=== PATIENT | male | born 1980 | race Caucasian/White ===

== ENCOUNTER 2025-06-07 07:54 | Emergency (ER) | payer OTHER, SELFPAY ==
--- OUTSIDE RECORDS SUMMARY | 2019-09-26 07:21 | XMS_ITS | Continuity of Care Document ---
Author Organization [facility]ly [facility] Address [address] [place] [address] Phone Care Team Providers Care Tire Shop Manager Name Role Phone NonClinical, Staff Unavailable Unavailable Allergies, Adverse Reactions, Alerts Substance Reaction Status Criticality No Known Allergies Active No Inform ation Medications Medication Instructions Dosage Effective Dates (start - stop) Status Comments aspirin 81 mg chewable tablet chew 1 tablet by oral route every day 81 MG - Active Procedures Procedure Date Offic/outpt E&m Estab Low-mod EKG 12 Lead; Tracing Only OFFICE/OUTPATIENT VISIT, [facility] Advance Directives Directive Yes / No Effective Date File Name No Information Encounters Encounter Description Practice Location Reason(s) For Visit Diagnoses Date Provider Providers Copied on Encounter [facility], [address] [place] [address], [id number], [place] tel:[phone] [facility] No Information 0 NonClinical Staff. . Offic/outpt E&m Estab Low-mod [facility], [address] [place] [address], [id number], [place] tel:[phone] [facility] STD testing (chief complaint) Swollen Gland (chief complaint) Screening for STDs (sexually transmitted diseases) 7 No Information OFFICE/OUTPA TIENT VISIT, [facility], [address] [place], [place], [id number], [place] tel:[phone] [facility] TE (chief complaint) Heart palpitationsEnco unter to establish careCoronary artery disease, angina presence unspecified, unspecified vessel or lesion type, unspecified whether ass[place] and sioux or transplanted heart Chase Hoff. [facility] [place], [place], [id number], . tel:[phone] Family History Family Member Type Diagnosis Age At Onset No Information Payers Payer name Insurance type Covered constitution party ID Authorkhoa oliver(s) [facility] [id number] Social History Type Description Quantity Date Captured Comments Alcohol Use Details Unknown Caffeine Use Details Unknown Tobacco Use Status Smoking Status No Information Sex Male Sexual Orientation Straight or heterosexual Gender Identity Male Chief Complaint And Reason For Visit No Information Reason For Referral Reason For Referral No Information Plan Of Treatment Date Type Action Status Goal Lipid Panel due Goal Lipid Panel due Referral Ordered: Cardiology Referral ordered Referral Ordered: EKG 12 Lead; Tracing Only Appointment date/timeframe: Today ordered History Of Present Illness Encounter Date Complaint History Of Prese nt Illness Swollen Gland Pt states that bismark oconnell was cleaning out a goat pen yesterday and came across mold. He notes he has been wheezing and had a swollen gland under his neck. He had a period of coughing the evening after he was exposed, but those sympotms have completely resolved. STD testing 35 year old male presents to as a SDWI for STD testing. Pt is here for routine testing. He is not having any symptoms, but he has been exposed to herpes. TE 35 y/o male pres ents today to establish care with new PCP: PrevPCP: None. PMHx: Nothing concerning. PSHx: None. Medications: None. ALLERGIES: NKA. Family Hx: Grandfather- Heart disease. Living situation: Currently living on a farm in [place]. 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 Diet isn't the best with patient explaining he eats whatever is available. Tobacco: Started smoking at 12 y/o, smoking 1/2 PPD. At the heaviest he smoked 1 PPD. Alcohol: None. Drugs: MJ use. Concerns Today: Patient has cardiac concerns per experiencing heart palpitations and tunnel vision. Onset at age 14. He states that over time symptoms (palpitations/chest pressure) have occurred more frequently as of late. He reports having episodes that occur for a week at a time and then other episodes only occurring for a day. Episodes range from lasting for a couple of minutes to 15 minutes. He describes episodes feeling as though he just got done running. He feels he can actually see the beating of his heart through his chest. He feels the pounding is out of propoprtion to the exertion. Symptoms will sometimes resolve when resting for a moment. He denies being born with any cardiac complications. He used to run long distance and denies any passing out, blacking out, syncope, pain with exertion. He admits to having a hx of anxiety and panic attacks but does not think this correlates with his symptoms. Functional Status Date Functional Assessmen t No Information Instructions Date Instruction Additional Infor mation No Information Assessments Type Assessment Date No Information Patient Care Teams Name Effective Dates (start - stop) Status Members No Information
--- OUTSIDE RECORDS SUMMARY | 2024-01-31 03:52 | XMS_ITS | Continuity of Care Document ---
Author Organization [facility] Address [address] [place] [address] Phone Care Team Providers Care Paper Mill Manager Name Role Phone Gabe Santiago MD Unavailable Unavailable Allergies, Adverse Reactions, Alerts Substance Reaction Status Criticality No Known Allergies Active No Inform ation Medications Medication Instructions Dosage Effective Dates (start - stop) Status Comments fluticasone propionate 50 mcg/actuation nasal spray,suspension 2 sprays each nostril in the morning - Active hydrocodone 7.5 mg-acetaminophen 325 mg tablet take 1 tablet by oral route every 6 hours as needed for pain as needed for Pain,Severe 7-10 On Pain Scale 1.00 tablet - Active lisinopril 5 mg tablet take 1 tablet by oral route every day 5 MG - Active Procedures Procedure Date OFFICE/OUTPATIENT VISIT, EST NASAL ENDOSCOPY, DX POSTOP FOLLOW-UP VISIT NASAL/SINUS ENDOSCOPY, SURG REVISION OF ETHMOID SINUS EXPLORATION MAXILLARY SINUS OFFICE/OUTPATIENT VISIT, NEW Advance Directives Directive Yes / No Effective Date File Name No Information Encounters Encounter Description Practice Location Reason(s) For Visit Diagnoses Date Provider Providers Copied on Encounter [facility] [place], [address], [place], [place], [id number], tel:[phone] [facility] No Information 4 Jack Bernal. [address], [address], [place], [place], [id number], [place]. tel:[phone] OFFICE/OUTPA TIENT VISIT, EST [facility] [place], [address], [place], [place], [id number], [place] tel:[phone] [facility] Follow Up of Nasal Drainage/C oncerns (chief complaint) Chronic sinusitisDevia kendrick nasal septum 4 Jack Bernal. [address] [facility], [address], [place], [place], [id number], [place]. tel:[phone] Referring Provider: Gabe Santiago, [address] [facility] [address], [place], [address]. tel:[phone] [facility] [place], [address] [facility], [place], [place], [id number], [place] tel:[phone] [facility] Nasal Drainage/C oncerns (chief complaint) Chronic sinusitis 4 Jack Bernal. [address] [facility], [address], [place], [place], [id number], [place]. tel:[phone] Referring Provider: Gabe Santiago, [address] [facility] [address], [facility] [place], [address]. tel:[phone] [facility] [place] [address] [facility], [place], [place], [id number], [place] tel:[phone] [facility] Follow Up of nose. (chief complaint) Encounter for surgical aftercare following surgery on the sense organs 4 Jack Bernal. [address] [facility], [address], [place], [place], [id number], [place]. tel:[phone] Referring Provider: Gabe Santiago, [address] [facility] [address], [place], [address]. tel:[phone] [facility] [place], [address] , [place], [place], [id number], [place] tel:[phone] [facility] PO bilateral ESS. (chief complaint) Encounter for surgical aftercare following surgery on the sense organs 4 Jack Bernal. [address] [facility], [address], [place], [place], [id number], [place]. tel:[phone] [facility] [place], [address] , [place], [place], [id number], [place] tel:[phone] [facility] No Information 4 Jack Bernal. [address] [facility], [address], [place], [place], [id number], [place]. tel:[phone] [facility] [place], [address] , [place], [place], [id number], [place] tel:[phone] [facility] No Information 4 Jack Bernal. [address] [facility], [address], [place], [place], [id number], [place]. tel:[phone] OFFICE/OUTPA TIENT VISIT, [facility] [place], [address] [place], [place], [id number], [place] tel:[phone] [facility] Nasal Drainage/C oncerns (chief complaint) Chronic sinusitisDevia kendrick nasal septum 4 Jack Bernal. [address] [facility], [address], [place], [place], [id number], [place]. tel:[phone] Family History Family Member Type Diagnosis Age At Onset Father Problem (finding) Cancer Father Problem (finding) Cardiac disorder Payers Payer name Insurance type Covered constitution party ID Pawel oliver(s) [facility] [id number] Social History Type Description Quantity Date Captured Comments Sex Male Smoking Status No Information Chief Complaint And Reason For Visit No Information Reason For Referral Reason For Referral No Information Plan Of Treatment Date Type Action Status Future Order: Lab Order Aerobic Bacterial Culture (41836) ([id number]), Collected on: Ordered History Of Present Illness Encounter Date Complaint History Of Prese nt Illness Follow Up of Nasal Drainage/Conc erns Nasal Drainage/Concerns Follow Up of nose. PO bilateral ESS. Nasal Drainage/Concerns Functional Status Date Functional Assessmen t No Information Instructions Date Instruction Additional Infor ramón 1. Culture left abdoul lemos sinus.2. He will continue his amoxicillin until we get the culture results. Related to Chronic sinusitis 1. Amoxicillin 875 1 po BID x 14 days2. RTC 2 weeks Related to Chronic sinusitis 1. Continue nasal ir rigations.2. Return to clinic as needed. Related to Encounter for surgical aftercare following surgery on the sense organs 1. Nose debrided toabby ay2. Fluticasone 2 sprays each nostril once a day3. Continue nasal saline irrigations4. Return to clinic 4 weeks Related to Encounter for surgical aftercare following surgery on the sense organs 1. CT scan reviewed with patient. At this point in time I do recommend endoscopic sinus surgery: Bilateral maxillary antrostomies bilateral total ethmoidectomies.2. R&B discussed: Bleeding, persistent infection, CSF leak, Injury to eye or brain, change or loss of vision. Related to Chronic sinusitis Assessments Type Assessment Date No Information Patient Care Teams Name Effective Dates (start - stop) Status Members No Information
--- OUTSIDE RECORDS SUMMARY | 2024-10-29 08:10 | XMS_ITS ---
Author Organization [facility] Address [address] [place] [address] Phone [phone] Care Team Providers Care Recruiter Account Manager Name Role Phone Herb Jimenez Primary Care Provider [phone] Maynor Ma [phone] REASON FOR VISIT Counseling Social History Sex Observation Social History Observation Description Sex Observation Male Sexual Orientation Social History Observation Description Sexual Orientation Choose not to disclo se Gender Identity Social History Observation Description Gender Identity Choose not to disclose Encounters Date Time Type Facility Location Provider Diagnosis 10/29/2024 08:10 AM Office Visit [facility] [address] [place] [address] Maynor Ma Plan Of Treatment Next Appt Details Provider Name:Herb Jimenez, 0 06/23/2025 09:10:00 AM, [address] [place] [address], [address], Medical (General) History Medical History History ICD Code HTN potential NSTEMI ( Reported by pt in 2022. Denies being told if any cardiac stents were placed.) Anxiety/depression (reported by pt) Surgical History Surgery Date(Month/Year) L. sinus surgery. 2023 Removal of all of top teeth. 2021 Hospitalization History Reason Date(Month/Year) ED visit - due to R. knee sw elling/pain. dx with pre-paterllar bursitist. Pt was treated with abx and advised to f/u with PCP. 03/23/2025 potential NSTEMI. Pt reporte d going to hosp due to chest pain. Found to have elevated troponin and had Cath. No stent placement or coronary occlusions were reported 2022 Progress Notes * Juvencio ALCALA MDOB: [birth year] (44 yo M)Acc No.[id number]:10/29/2024 UNLOCKED PROGRESS NOTE Patient: Gopal Juvencio SHARMA Provider: Arnulfo Ma :1980 A ge:43 Y S ex:Male Date:10/29/2024 Address:[address] [place], [place] [id number] Pcp:Herb Jimenez Subjective: * Chief Complaints: * 1 . Counseling. * Screening: * * Medical History: Objective: * Vitals: Assessment: Plan: * Treatment: * Care Plan Details* * Electronic signature of Maynor Ma on 06/07/2025 at 08:22 AM SECURITIES SETTLEMENT PROCESSOR Sign off status: Pending * Provider: Arnulfo Ma Date: 0 10/29/2024 Generated for Lola stone/Jey/Bharatiitting on: 1 08/08/2024 08:22 AM SECURITIES SETTLEMENT PROCESSOR
--- OUTSIDE RECORDS SUMMARY | 2024-11-17 09:10 | XMS_ITS ---
Author Organization [facility] Address [address] [place] [address] Phone [phone] Care Team Providers Care Woods Rider Name Role Phone Tony Herb Primary Care Provider REASON FOR VISIT 4 week F/U Social History Sex Observation Social History Observation Description Sex Observation Male Sexual Orientation Social History Observation Description Sexual Orientation Choose not to disclo se Gender Identity Social History Observation Description Gender Identity Choose not to disclose Encounters Date Time Type Facility Location Provider Diagnosis 11/17/2024 09:10 AM Office Visit [facility] [address] [place] [address] Herb Jimenez Plan Of Treatment Next Appt Details Provider Name:Herb Jimenez, 0 06/23/2025 09:10:00 AM, [address] [place], [address], Medical (General) History Medical History History ICD [...] Juvencio ALCALA MDOB: [birth year] (44 yo M)Acc No.[id number]:11/17/2024 UNLOCKED PROGRESS NOTE Progress Note Patient: Juvencio LAGUERRE Appointment Provider: Tika Jimenez MD :1980 A ge:43 Y S ex:Male Date:11/17/2024 Address:[address] [place], [place] [address] Subjective: * Chief Complaints: * 1 . 4 week F/U. * Screening: * * Medical History: Objective: * Vitals: Assessment: Plan: * Treatment: * * Electronic signature of Toni Jimenez , [id number] on 06/07/2025 at 08:22 AM DINING ROOM TABLES SET UP ATTENDANT Sign off status: Pending * Appointment Provider: Tika Jimenez MD Date: 0 11/17/2024 Generated for Lola stone/Jey/Bharatiitting on: 1 08/08/2024 08:22 AM DINING ROOM TABLES SET UP ATTENDANT
--- OUTSIDE RECORDS SUMMARY | 2025-01-07 13:50 | XMS_ITS ---
Author Organization [facility] Address [address] [place] [address] Phone [phone] Care Team Providers Care Nursery Manager Name Role Phone Herb Jimenez Primary Care Provider [phone] Ellie Bowens DMD REASON FOR VISIT new patient Social History Sex Observation Social History Observation Description Sex Observation Male Sexual Orientation Social History Observation Description Sexual Orientation Choose not to disclo se Gender Identity Social History Observation Description Gender Identity Choose not to disclose Encounters Date Time Type Facility Location Provider Diagnosis 01/07/2025 01:50 PM Office Visit [facility] [address] [place] [address] Ellie Bowens Plan Of Treatment Next Appt Details Provider Name:Herb Jimenez, 0 06/23/2025 09:10:00 AM, [address] [place], [address], Medical (General) History Medical History History ICD [...] Juvencio ALCALA MDOB: [birth year] (44 yo M)Acc No.[id number]:01/07/2025 UNLOCKED PROGRESS NOTE Patient: Gopal CANDICEPhoebe Juvencio Arredondo Provider: Donal Bowens DMD :1980 A ge:44 Y S ex:Male Date:01/07/2025 Address:[address] [place], [place] [id number] Pcp:Herb Jimenez Subjective: * Chief Complaints: * 1 . New patient. * Screening: * * Medical History: Objective: * Vitals: Assessment: Plan: * Treatment: * * Electronic signature of Ellie Bowens DMD, [id number] on 06/07/2025 at 08:22 AM CONCRETE BOOM PUMP OPERATOR Sign off status: Pending * Provider: Donal Bowens DMD Date: 0 01/07/2025 Generated for Lola stone/Jey/Bharatiitting on: 1 08/08/2024 08:22 AM CONCRETE BOOM PUMP OPERATOR
--- OUTSIDE RECORDS SUMMARY | 2025-03-12 08:10 | XMS_ITS ---
Author Organization [facility] Address [address] [place] [address] Phone [phone] Care Team Providers Care Drawing Frame Tender Name Role Phone Herb Jimenez Primary Care Provider Ellie Bowens DMD REASON FOR VISIT #30, #31-OB Social History Sex Observation Social History Observation Description Sex Observation Male Sexual Orientation Social History Observation Description Sexual Orientation Choose not to disclo se Gender Identity Social History Observation Description Gender Identity Choose not to disclose Encounters Date Time Type Facility Location Provider Diagnosis 03/12/2025 08:10 AM Office Visit [facility] [address] [place] [address] Ellie Bowens Plan Of Treatment Next Appt Details Provider Name:Herb Jimenez, 0 06/23/2025 09:10:00 AM, [address] [place], [address], Medical (General) History Medical History History ICD [...] Juvencio ALCALA MDOB: [birth year] (44 yo M)Acc No.[id number]:03/12/2025 UNLOCKED PROGRESS NOTE Filling Patient: Gopal CANDICEToni SandhuJuvencio Arnulfo Provider: Donal Bowens DMD :1980 A ge:44 Y S ex:Male Date:03/12/2025 Address:[address] [place], [place] [id number] Pcp:Herb Jimenez Subjective: * Chief Complaints: * 1 . #30, #31-OB. * Screening: * * Medical History: Objective: * Vitals: Assessment: Plan: * Treatment: * * Electronic signature of Ellie Bowens DMD, [id number] on 06/07/2025 at 08:21 AM BEND UP Sign off status: Pending * Provider: Donal Bowens DMD Date: Generated for Lola stone/Jey/Darcy on: 08/08/2024 08:21 AM BEND UP
--- OUTSIDE RECORDS SUMMARY | 2025-04-21 08:10 | XMS_ITS ---
Author Organization [facility] Address [address] [place] [address] Phone [phone] Care Team Providers Care Legal Project Manager Name Role Phone TonyHerb Primary Care Provider [phone] REASON FOR VISIT med check refill Social History Sex Observation Social History Observation Description Sex Observation Male Sexual Orientation Social History Observation Description Sexual Orientation Choose not to disclo se Gender Identity Social History Observation Description Gender Identity Choose not to disclose Encounters Date Time Type Facility Location Provider Diagnosis 04/21/2025 08:10 AM Office Visit [facility] [address] [place] [address] Herb Tony Plan Of Treatment Next Appt Details Provider Name:Herb Jimenez, 0 06/23/2025 09:10:00 AM, [address] [place], [address], Medical (General) History Medical History History ICD [...] Juvencio ALCALA MDOB: [birth year] (44 yo M)Acc No.[id number]:04/21/2025 UNLOCKED PROGRESS NOTE Progress Note Patient: Juvencio LAGUERRE Appointment Provider: Tika Jimenez MD :1980 A ge:44 Y S ex:Male Date:04/21/2025 Address:[address] [place], [place] [id number] Subjective: * Chief Complaints: * 1 . Med check refill. * Screening: * * Medical History: Objective: * Vitals: Assessment: Plan: * Treatment: * * Electronic signature of Toni Jimenez , [id number] on 06/07/2025 at 08:21 AM DIRECTOR OF SPEECH PATHOLOGY Sign off status: Pending * Appointment Provider: Tika Jimenez MD Date: 06/21/2024 Generated for Lola stone/Jey/Bharatiitting on: 08/08/2024 08:21 AM DIRECTOR OF SPEECH PATHOLOGY
--- OUTSIDE RECORDS SUMMARY | 2025-05-05 13:10 | XMS_ITS ---
Author Organization [facility] Address [address] [place] [address] Phone [phone] Care Team Providers Care Front Office Representative Name Role Phone Herb Jimenez Primary Care Provider Ellie Bowens DMD [phone] REASON FOR VISIT #30, #31-O & B Social History Sex Observation Social History Observation Description Sex Observation Male Sexual Orientation Social History Observation Description Sexual Orientation Choose not to disclo se Gender Identity Social History Observation Description Gender Identity Choose not to disclose Encounters Date Time Type Facility Location Provider Diagnosis 05/05/2025 01:10 PM Office Visit [facility] [address] [place] [address] Ellie Bowens Plan Of Treatment Next Appt Details Provider Name:Herb Jimenez, 0 06/23/2025 09:10:00 AM, [address] [place], [address], Medical (General) History Medical History History ICD [...] Juvencio ALCALA MDOB: [birth year] (44 yo M)Acc No.[id number]:05/05/2025 UNLOCKED PROGRESS NOTE Filling Patient: Juvencio LAGUERRE Provider: Donal Bowens DMD :1980 A ge:44 Y S ex:Male Date:05/05/2025 Address:[address] [place], [place] [id number] Pcp:Herb Jimenez Subjective: * Chief Complaints: * 1 . #30, #31-O & B. * Screening: * * Medical History: Objective: * Vitals: Assessment: Plan: * Treatment: * * Electronic signature of Ellie Bowens DMD, [id number] on 06/07/2025 at 08:22 AM INTELLIGENCE OPERATIONS SPECIALIST Sign off status: Pending * Provider: Donal Bowens DMD Date: 07/05/2024 Generated for Lola stone/Jey/Darcy on: 08/08/2024 08:22 AM INTELLIGENCE OPERATIONS SPECIALIST
[2025-06-07 07:54] VITALS: BP 112/82; PULSE 65; RESP 16; TEMP 37; O2SAT 100
--- NOTE | 2025-06-07 08:00 | ED_ITS ---
HPI - URI/Sore Throat General Chief Complaint: Upper Respiratory Infection Stated Complaint: sinus infection Time Seen by Provider: 06/07/25 08:00 Source: patient Mode of arrival: ambulatory Limitations: no limitations History of Present Illness HPI Narrative: Patient is a 44-year-old male with known recurrent sinusitis here with same symptoms as normal about every 3 months. He has plans for upcoming surgery to his nasal passages to open up his sinuses. This is exactly same symptoms that he gets every 3 months. He does not feel sick of illness such as flu or COVID at this time. MD elicited complaint: rhinorrhea, nasal congestion and sinus pain (Typically has pain and pressure of all 4 quadrants; prior CT scan shows them to be full regularly) Pertinent past history: sinusitis Onset (ago): week(s) (1) Consistency: constant Severity: moderate Pain scale (0-10): 4 Description of mucous: clear and yellow Able to tolerate fluids by mouth: Yes Exacerbating factors: nothing Relieving factors: nothing Context: other (Patient has recurrent sinusitis and feels as if he is acute sinusitis at this time compared to prior same episodes in the past about every 3 months) Associated symptoms: headache, rhinorrhea and nasal congestion Treatments prior to arrival: none Related Data Allergies Allergy/AdvReac Type Severity Reaction Status Date / Time No Known Allergies Allergy Verified 06/07/25 08:01 Review of Systems Review of Systems: All systems reviewed & are unremarkable except as noted in HPI and below Constitutional: Constitutional: Reports no additional constitutional complaints Eyes: Eyes: Reports no additional eye complaints ENT: Reports system reviewed and no additional complaints, except as documented Cardiovascular: Cardiovascular: Reports no additional cardiovascular complaints Respiratory: Respiratory: Reports no additional respiratory complaints Gastrointestinal: Gastrointestinal: Reports no additional gastrointestinal complaints Genitourinary: Genitourinary: Reports no additional male genitourinary complaints Musculoskeletal: Musculoskeletal: Reports no additional musculoskeletal complaints Integumentary/Breasts: Skin/Breast: Reports system reviewed and no additional complaints, except as docu Neurologic: Reports system reviewed and no additional complaints, except as documented Psychiatric: Psychiatric: Reports no additional psychiatric complaints Endocrine: Endocrine: Reports no additional endocrine complaints Hematologic/Lymphatic: Hematologic/Lymphatic: Reports no additional hematologic/lymphatic complaints Allergic/Immunologic: Allergic/Immunologic: Reports no additional allergic/immunologic complaints Exam Const: General: healthy appearing Nutritional Appearance: well nourished Orientation/consciousness: patient oriented x3 Limitations: no limitations HENMT: Head: normal to inspection Ears: external ears normal Face/Nose/Sinus: Normal external nose present Face and sinus: sinus tendernes s (Bilaterally) frontal and maxillary Mouth: Yes Normal oral and palatal mucosa present Teeth and gingiva: dentition normal (Upper teeth have been removed) Throat: posterior oropharynx normal Eyes: Conjunctivae: conjunctivae normal Pupils: Equal, round and reactive pupils present EOM: EOMs intact bilaterally Neck: Neck: normal visual inspection Chest: Chest palpation & inspection: normal inspection of the chest Resp: Effort & Inspection: normal respiratory effort and not labored Auscultation: clear to auscultation bilaterally and no crackles Cardio: Rate: regular rate Rhythm: regular rhythm Heart sounds: no murmurs GI: Inspection: non-distended GI Palp: Yes Soft to palpation and No Tenderness to palpation present (GI) Auscultation: normal bowel sounds : General: Yes bladder normal to palpation Back/Spine/Pelvis: Back: no CVA tenderness Skin: General skin exam: normal color Rashes: no rashes Wounds: no wounds Neuro: General: patient oriented x3, moves all extremities and no meningeal signs Extrem: General: normal to inspection, no clubbing, cyanosis or edema and no pedal edema Psych: Mental Status: mental status grossly normal Affect: normal affect Attitude: cooperative Course Vital Signs Vital signs: Vital Signs Temperature 37.0 C 06/07/25 07:54 Pulse Rate 65 06/07/25 07:54 Respiratory Rate 16 06/07/25 07:54 Blood Pressure 112/82 06/07/25 07:54 Pulse Oximetry 100 06/07/25 07:54 Oxygen Delivery Room Air 06/07/25 07:54 Temperature 37.0 C 06/07/25 07:54 Pulse Rate 65 06/07/25 07:54 Respiratory Rate 16 06/07/25 07:54 Blood Pressure 112/82 06/07/25 07:54 Pulse Oximetry 100 06/07/25 07:54 Oxygen Delivery Room Air 06/07/25 07:54 [facility] Narrative Medical decision making narrative: Patient is a 44-year-old male with known acute on chronic sinusitis every 3 months. Patient is here for the same. Omnicef. Patient did not want steroids. ENT as planned. Differential Diagnosis Differential Diagnosis: Sinusitis, pharyngitis Discharge Plan Discharge Clinical Impression: Acute bacterial sinusitis Patient Disposition: Home Condition: Stable Instructions: Antibiotic Form, Rhinosinusitis (ED) Patient Language: Malay Prescriptions: New cefdinir 300 mg capsule 300 mg PO BID 14 Days Qty: 28 0RF Follow-up/Referrals: Robin Valenzuela MD [Primary Care Provider, Internal Medicine] Stand Alone Forms: Work/School Release IP Time of Disposition: 08:07
--- OUTSIDE RECORDS SUMMARY | 2025-06-07 08:22 | XMS_ITS | Clinical Summary ---
Author Organization [facility] Address [address] [place] [address] Phone Care Team Providers Care Residential Monitor Name Role Phone Rogelio Kowalski DO Primary Care Provider [phone] Allergies No known active allergies Medications lisinopril (PRINIVIL, ZESTRIL) 5 MG Tablet Take 5 mg by mouth daily. Active Active Problems No known active problems Encounters Date Type Department Care Team Description 05/01/2025 Telephone [facility] - Ear, Nose & Throat - Normal [address] [place] [phone] Kendell Tomlni MD 04/29/2025 8:20 AM MOLD OPERATOR Office Visit [facility] - Ear, Nose & Throat - Normal [address] [place] [phone] Kendell Tomlin MD Chronic pansinusitis (Primary Dx); Nasal septal deviation; Fistula, teodoro-antral Discharge Disposition: Discharged to home or Selfcare 04/29/2025 Travel 04/01/2025 9:00 AM CDT Office Visit [facility] - Ear, Nose & Throat - Normal [address] [place] [phone] Kendell Tomlin MD Oral fistula (Primary Dx); Chronic pansinusitis Discharge Disposition: Discharged to home or Selfcare 04/01/2025 Travel 03/23/2025 11:04 PM CDT - 03/24/2025 1:17 AM CDT [facility] [address] [place] [address] Johan De La Garza MD Prepatellar bursitis of right knee Discharge Disposition: Discharged to home or Selfcare 03/23/2025 Travel 03/12/2025 Telephone [facility] [address] [place] [phone] Kendell Tomlin MD Appointment from Last 3 Months Family History Medical History Relation Name Comments No Known Problems Father No Known Problems Mother Relation Name Status Comments Father Mother Social History Tobacco Use Types Packs/Day Years Used Date Smoking Tobacco: Every Day Cigarettes Smokeless Tobacco: Never Tobacco Cessation:Ready to Q uit: No; Counseling Given: Yes Comments:VAPE Alcohol Use Standard Drinks/Week Comments Not Currently 0 (1 standard drink = 0.6 oz pur e alcohol) Sex and Gender Information Value Date Recorded Sex Assigned at Not on file Legal Sex Male 9:08 AM CDT Gender Identity Not on file Sexual Orientation Not on file Last Filed Vital Signs Vital Sign Reading Time Taken Comments Blood Pressure 116/77 04/29/2025 8:15 AM MOLD OPERATOR Pulse 61 04/29/2025 8:15 AM MOLD OPERATOR Temperature 36.3 C (97.4 F) 04/29/2025 8:15 AM MOLD OPERATOR Respiratory Rate 18 03/24/2025 1:09 AM CDT Oxygen Saturation 98% 04/29/2025 8:15 AM MOLD OPERATOR Inhaled Oxygen Concentration - - Weight 68 kg (150 lb) 04/29/2025 8:15 AM MOLD OPERATOR Height 188 cm (6' 2) 04/29/2025 8:15 AM MOLD OPERATOR Body Mass Index 19.26 04/29/2025 8:15 AM MOLD OPERATOR Plan of Treatment Health Maintenance Due Date Last Done Comments Hepatitis C Virus (HCV) Screening 1980 TdaP Immunization 1980 Hepatitis B Immunization (1 of 3 - 19+ 3-dose series) 12/08/1998 Pneumococcal Immunization Co mbined (1 of 2 - PCV) 12/08/1998 Cologuard 12/08/2024 Colonoscopy 12/08/2024 Colorectal Cancer Screening 12/08/2024 Immunochemical Fecal Occult Blood 12/08/2024 Influenza Immunization (#1) 2025 SARS-COV-2 Immunization ( - season) 2025 Respiratory Syncytial Virus (RSV) Immunization (Adult) (1 - 1-dose 75+ series) 12/08/2054 Human Papillomavirus (HPV) Immunization (No Doses Required) Completed Meningococcal Immunization (ACWY) Aged Out No longer eligible based on patient's age to complete this topic Rotavirus Immunization Aged Out No lo nger eligible based on patient's age to complete this topic Procedures Procedure Name Priority Date/Time Associated Diagnosis Comments CULTURE, AEROBIC ONLY Routine 04/01/2025 9:31 AM CDT Chronic pansinusitis XR KNEE MINIMUM 4 VIEWS RIGHT STAT 03/23/2025 11:59 PM CDT CBC WITH AUTO DIFFERENTIAL STAT 03/23/2025 11:42 PM CDT APTT (PTT) STAT 03/23/2025 11:42 PM CDT PROTIME (PT) (PROTHROMBIN TIME) STAT 03/23/2025 11:42 PM CDT C-REACTIVE PROTEIN (CRP) QUANT STAT 03/23/2025 11:42 PM CDT ERYTHROCYTE SEDIMENTATION RATE (ESR) STAT 03/23/2025 11:42 PM CDT BASIC METABOLIC PANEL W/ CALCIUM TOTAL STAT 03/23/2025 11:42 PM CDT COMPLETE BLOOD COUNT (CBC) WITH DIFF STAT 03/23/2025 11:42 PM CDT INCISION AND DRAINAGE STAT 03/23/2025 11:41 PM CDT from Last 3 Months Results * CULTURE, AEROBIC ONLY (04/01/2025 9:31 AM CDT) CULTURE RESULTS BETA-HEMOLYTIC STREPTOCOCCUS 04/03/2025 8:20 AM CDT [facility] CULTURE RESULTS Heavy Mixed travis 04/03/2025 8:20 AM CDT [facility] Comment:PROBABLE USUAL TRAVIS FOR THIS SPECIMEN SOURCE Culture SINUS / Unknown Non-Phlebotomy Collection / Unknown 04/01/2025 9:31 AM CDT 04/01/2025 9:31 AM CDT Narrative [facility] - 04/03/2025 8:20 AM CDT Sensitivity testing not routinely performed on beta Strep isolates. Kendell Tomlin MD MICROBIOLOGY - GENERAL ORDERAB LES Final Result [facility] [address] [place] [address], * XR KNEE MINIMUM 4 VIEWS RIGHT (03/23/2025 11:59 PM CDT) Anatomical Region Laterality Modality LOWER EXTREMITY, knee Right Digital Ra diography 03/23/2025 11:5 9 PM CDT Impressions 03/24/2025 9:56 AM CDT FINDINGS/IMPRESSION: No acute fractures or dislocations. No bony destruction or periostitis. Maintained joint spaces. Small joint effusion. Severe soft tissue swelling in the prepatellar region as could be seen in such settings as bursitis, contusion or infection.. Narrative 03/24/2025 9:56 AM CDT XR KNEE MINIMUM 4 VIEWS RIGHT : 03/23/2025 11:59 PM DICTATING PHYSICIAN: Neel Acuña MD, [facility]. HISTORY: As below. Technologist history: swelling, pain COMPARISON: None. Procedure Note Neel Caldwell MD - 03/24/2025 XR KNEE MINIMUM 4 VIEWS RIGHT : 03/23/2025 11:59 PM DICTATING PHYSICIAN: Neel Acuña [facility], [facility] HISTORY: As below. Technologist history: swelling, pain COMPARISON: None. FINDINGS/IMPRESSION: No acute fractures or dislocations. No bony destruction or periostitis. Maintained joint spaces. Small joint effusion. Severe soft tissue swelling in the prepatellar region as could be seen insuch settings as bursitis, contusion or infection.. Johan De La Garza MD IMG DIAGNOSTIC ORDERABLES Regina l Result * (ABNORMAL) CBC with Auto Differential (03/23/2025 11:42 PM CDT) WBC 14.27(H) 4.00 - 12.00 10(3)/mcL 03/23/2025 11:56 PM CDT [facility] RBC 4.27(L) 4.40 - 5.80 10(6)/mcL 03/23/2025 11:56 PM CDT [facility] HEMOGLOBIN (HGB) 13.6 13.0 - 16.5 g/dL 03/23/2025 11:56 PM CDT [facility] HEMATOCRIT (HCT) 39.6 38.0 - 50.0 % 03/23/2025 11:56 PM CDT [facility] MCV 92.7 82.0 - 96.0 fL 03/23/2025 11:56 PM CDT [facility] MCH 31.9 26.0 - 32.0 pg 03/23/2025 11:56 PM CDT [facility] MCHC 34.3 31.0 - 36.0 g/dL 03/23/2025 11:56 PM CDT [facility] PLATELET COUNT 352 140 - 440 10(3)/[facility] 03/23/2025 11:56 PM CDT [facility] RDW 13.1 11.8 - 15.5 % 03/23/2025 11:56 PM CDT [facility] MPV 8.6 8.0 - 12.6 fL 03/23/2025 11:56 PM CDT [facility] NEUTROPHILS 59.5 40.0 - 68.0 % 03/23/2025 11:56 PM CDT [facility] LYMPHOCYTES 27.5 19.0 - 49.0 % 03/23/2025 11:56 PM CDT [facility] MONOCYTES 7.5 3.0 - 13.0 % 03/23/2025 11:56 PM CDT [facility] EOSINOPHILS 4.3 0.0 - 8.0 % 03/23/2025 11:56 PM CDT [facility] BASOPHILS 0.8 0.0 - 1.0 % 03/23/2025 11:56 PM CDT [facility] IMMATURE GRANULOCYTE 0.4 0.0 - 0.4 % 03/23/2025 11:56 PM CDT [facility] ABSOLUTE NEUTROPHILS 8.48(H) 1.40 - 5.30 10(3)/mcL 03/23/2025 11:56 PM CDT [facility] ABSOLUTE LYMPHOCYTES 3.92(H) 0.90 - 3.30 10(3)/mcL 03/23/2025 11:56 PM CDT [facility] ABSOLUTE MONOCYTES 1.07(H) 0.10 - 0.90 10(3)/mcL 03/23/2025 11:56 PM CDT [facility] ABSOLUTE EOSINOPHIL 0.62(H) 0.00 - 0.50 10(3)/mcL 03/23/2025 11:56 PM CDT [facility] ABSOLUTE BASOPHILS 0.12(H) 0.00 - 0.10 10(3)/mcL 03/23/2025 11:56 PM CDT [facility] ABSOLUTE IMMATURE GRANULOCYTE 0.06(H) 0.00 - 0.03 10 (3) mcL. 03/23/2025 11:56 PM CDT [facility] NRBC PER 100 WBC 0 03/23/20 25 11:56 PM CDT [facility] Blood Venous Catheter (IV) / Unknown 03/23/2025 11:42 PM CDT 03/23/2025 11:46 PM CDT us Johan De La Garza MD HEMATOLOGY ORDERABLES Final Re sult [facility] [address] [place] [address], * ESR - Erythrocyte Sed. Rate (03/23/2025 11:42 PM CDT) ESR (SED RATE, ERYTHROCYTE SEDIMENTATION RATE) 5 <15 mm/h 03/23/2025 11:50 PM CDT [facility] Comment: Patients presenting with increased level of fibrinogen, gamma globulins, or abnormally shaped RBCs could affect the results for the erythrocyte sedimentation rate (ESR). Results should be clinically correlated. Blood Venous Catheter (IV) / Unknown 03/23/2025 11:42 PM CDT 03/23/2025 11:46 PM CDT us Johan De La Garza MD HEMATOLOGY ORDERABLES Final Re sult Performing Organization Address [facility] Co de Phone Number [address] [address], [place] [phone] * PTT (03/23/2025 11:42 PM CDT) PTT 32 24 - 36 sec 03/24/2025 12:00 AM CDT [facility] Blood Venous Catheter (IV) / Unknown 03/23/2025 11:42 PM CDT 03/23/2025 11:46 PM CDT Narrative [facility] - 03/24/2025 12:00 AM CDT Therapeutic range for unfractionated heparin at 0.3-0.7 U/mL is an aPTT value in the range of 71-100 seconds. Critical value for the PTT test is >= 122 seconds. us Johan De La Garza MD HEMATOLOGY ORDERABLES Final Re sult Performing Organization Address [facility] Co de Phone Number [facility] [address] [place] [phone], [place] [phone] * PT / INR (03/23/2025 11:42 PM CDT) PROTIME-PATIENT 13.9 11.6 - 14.8 sec 03/24/2025 12:00 AM CDT [facility] INR 1.1 0.9 - 1.2 03/24/2025 12:00 AM CDT [facility] Comment: Therapeutic Ranges INR = 2.0-3.0: Venous thromb, atrial fib, pul embolism, tissue heart valve, ami. INR = 2.5-3.5: Mechanical heart valve Critical value for INR is >/= 4.5 Blood Venous Catheter (IV) / Unknown 03/23/2025 11:42 PM CDT 03/23/2025 11:46 PM CDT us Johan De La Garza MD HEMATOLOGY ORDERABLES Final Re sult Performing Organization Address City/[facility]/ZIP Co de Phone Number [address] [address], [place] [phone] * CRP - C-Reactive Protein (03/23/2025 11:42 PM CDT) C-REACTIVE PROTEIN 0.16 <0.50 mg/dL 03/24/2025 12:27 AM CDT [facility] Blood Venous Catheter (IV) / Unknown 03/23/2025 11:42 PM CDT 03/23/2025 11:46 PM CDT us Johan De La Garza MD CHEMISTRY ORDERABLES Final Res ult Performing Organization Address [facility] Co de Phone Number [address] [address], [place] [phone] * (ABNORMAL) BMP w/ Ca (03/23/2025 11:42 PM CDT) SODIUM 131(L) 136 - 145 mmol/L 03/24/2025 12:04 AM CDT [facility] POTASSIUM 4.2 3.5 - 5.1 mmol/L 03/24/2025 12:04 AM CDT [facility] CHLORIDE 97(L) 98 - 107 mmol/L 03/24/2025 12:04 AM CDT [facility] CO2, VENOUS 25 22 - 30 mmol/L 03/24/2025 12:04 AM CDT [facility] ANION GAP 9.0 <18.0 mmol/L 03/24/2025 12:04 AM CDT [facility] GLUCOSE 91 70 - 99 mg/dL 03/24/2025 12:04 AM CDT [facility] BUN 10 9 - 21 mg/dL 03/24/2025 12:04 AM CDT [facility] CREATININE, BLOOD 0.83 0.70 - 1.30 mg/dL 03/24/2025 12:04 AM CDT [facility] BUN/CREATININE RATIO 12 12 - 20 ratio 03/24/2025 12:04 AM CDT [facility] CALCIUM 8.8 8.7 - 10.5 mg/dL 03/24/2025 12:04 AM CDT [facility] GFR, ESTIMATED >60 >=60 03/24/2025 12:04 AM T [facility] Comment: Creatinine Clearance is the preferred criteria for selecting drug dose adjustments in renally impaired patients. The GFR is provided as additional pertinent clinical information. GFR is reported in mL/min/1.73 sq m. Calculation based on the 2020 Chronic Kidney Disease Epidemiology Collaboration (CKD-EPI) equation refit without adjustment for race. GFR, EST. >60 >=60 12:04 AM T [facility] Comment: Creatinine Clearance is the preferred criteria for selecting drug dose adjustments in renally impaired patients. The GFR is provided as additional pertinent clinical information. GFR is reported in mL/min/1.73 sq m. Calculation based on the 2009 Chronic Kidney Disease Epidemiology Collaboration (CKD-EPI). GFR, EST. NONAFRICAN >60 >=60 03/24/2025 12:04 AM T [facility] Comment: Creatinine Clearance is the preferred criteria for selecting drug dose adjustments in renally impaired patients. The GFR is provided as additional pertinent clinical information. GFR is reported in mL/min/1.73 sq m. Calculation based on the 2009 Chronic Kidney Disease Epidemiology Collaboration (CKD-EPI). Blood Venous Catheter (IV) / Unknown 03/23/2025 11:42 PM CDT 03/23/2025 11:46 PM CDT Johan De La Garza MD CHEMISTRY ORDERABLES Final Res ult [facility] [address] [place] [address], * Incision and Drainage (03/23/2025 11:41 PM CDT) Narrative Johan De La Garza MD - 03/23/2025 11:41 PM CDT Johan De La Garza MD 03/24/2025 4:22 AM Incision and Drainage Performed by: Johan De La Garza MD Authorized by: Johan De La Garza MD Consent: Consent obtained: Verbal Consent given by: Patient Risks, benefits, and alternatives were discussed: yes Risks discussed: Incomplete drainage, pain, infection and bleeding Location: Type: Bursa Location: Lower extremity Lower extremity location: Knee Knee location: R knee Sedation: Sedation type: None Anesthesia: Anesthesia method: Local infiltration Local anesthetic: Lidocaine 1% w/o epi Procedure type: Complexity: Simple Procedure details: Needle aspiration: yes Needle size: 18 G Incision depth: Subcutaneous Drainage: Serous Drainage amount: Scant Packing materials: None Post-procedure details: Procedure completion: Tolerated well, no immediate complications Johan De La Garza MD PROCEDURE/MINOR SURGICAL ORDER YURIDIA Final Result from Last 3 Months Insurance MEDICAID [employer] Care Teams Residential Monitor Relationship Specialty Start Date End Date Rogelio Kowalski DO [facility] [address] [place] [address] PCP - General Family Medicine 03/23/25
--- OUTSIDE RECORDS SUMMARY | 2025-06-07 08:22 | XMS_ITS | Encounter Summary ---
Author Organization [facility] Address [address] [place] [address] Phone Care Team Providers Care Gear And Spline Grinder Name Role Phone Rogelio Kowalski DO Primary Care Provider [phone] Encounter Details Date Type Department Care Team ([facility] st Contact Info) Description 05/01/2025 Telephone [facility] - Ear, Nose & Throat - Normal [address] [place] [address] Kendell Tomlin MD [address] [place] [address] Social History Tobacco Use Types Packs/Day Years Used Date Smoking Tobacco: Every Day Cigarettes Smokeless Tobacco: Never Comments:VAPE Alcohol Use Standard Drinks/Week Comments Not Currently 0 (1 standard drink = 0.6 oz pur e alcohol) Sex and Gender Information Value Date Recorded Sex Assigned at Not on file Legal Sex Male 9:08 AM CDT Gender Identity Not on file Sexual Orientation Not on file documented as of this encounter Miscellaneous Notes * Telephone Encounter - Saskia Campo - 05/01/2025 10:58 AM CST Spoke to Juvencio about scheduling his surgery. He would like to wait until he can find an oral surgeon for another surgery. He said he will call us back when he is ready. 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 [place], [place] [address] PCP - General Family Medicine 03/23/25 documented as of this encounter
--- OUTSIDE RECORDS SUMMARY | 2025-06-07 08:22 | XMS_ITS | Patient Health Record ---
Author Organization [facility] Address [address] [place] [address] Phone [phone] Care Team Providers Care Gunner Mate Name Role Phone Herb Jimenez Primary Care Provider Ellie Bowens DMD Unavailable Lelo Thompson Unavailable Maynor Ma Unavailable [phone] Allergies No Known Allergies Reason For Referral Referral Date 10/15/2024 Referral Status Open Reason Updated 02/02/2025 Patient(pt) has history of Left sinus surgery in that past )2022 or 2021) Pt reports that over the past year he has been having left sinus fullness and feeling drainage to left upper gum. Concerns for oral antral fistula. Please send referral to ENT thank you. (Pt is in process of applying for insurance) Diagnosis 1 Chronic maxillary si nusitis (J32.0) Referral [facility] Referring Provider First Name Herb Referring Provider Last Name oTny Referring Provider Speciality Family Med icine Referred Provider [facility], Dr Tomlin Referred Provider Specialty Ear, nose an d throat surgeon General Notes Molly Hilliard RN 10/20/2024 01:40:26 PM > referral being held while patient is applying for insurance, patient will call when he has insurance in place, Molly Hilliard RN 10/23/2024 01:07:46 PM > Patient called and provided insurance information, referral faxed to [facility], David Rdz 02/02/2025 09:00:11 AM >Patient wanting to go with [facility] , referral rerouted. Referral Priority Routine Referral Date 04/24/2025 Referral Status Open Reason Updated 05/04/2025 Patient (pt) presents after R. knee injury about 1 month ago. occured after kneeling. Pt initally had pain and swelling in R. knee. pain has since imrpoved. pt stills has pre-patella swelling/ reports pain with kneeling. Sending to ortho for further eval and imaging (if needed) Diagnosis 1 Right knee injury, s ubsequent encounter (S89.91XD) Referral Organization [facility] Referring Provider First Name Herb Referring Provider Last Name Tony [facility] Provider [facility] Referred Address [address] [place], [address], Referred Provider Specialty Orthopedic S urgery General Notes David Rdz 05/04 03:14:41 PM >, David Rdz 05/04/2025 03:14:46 PM >Nurse faxed referral and OVN Referral Priority Routine Medications Medication SIG (Take, Route, Frequency, Duration) Notes Start Date End Date Diagnosis (ICD Code) Status Lisinopril 5 MG Tablet 1 tablets Orally Once a day; Duration: 60 days Please dispense the cheapest brand or generic covered by patient's insurance. Thank you! Hypertension (ICD_10 - I10) Active Social History Tobacco Use: Social History Observation Description Date Details (start date - stop date) Unknown Sex Observation Social History Observation Description Sex Observation Male Sexual Orientation Social History Observation Description Sexual Orientation Choose not to disclo se Gender Identity Social History Observation Description Gender Identity Choose not to disclose SDOH Assessments Date Tool Assessment Assessment LOINC Value Assessment Notes Goals Interventions General Notes 04/24 SHAVONNE DAN (FRANSISCOIN C: 55750 -5) Total Score : 5 Please specify Case Management Follow-up Financial Counseling /Eligibili ty Assistance Transporta tion to/from Health Center Referral for Housing Services Case Management Appointmen t Made Case Management Assessment First Visit Social: living in [place] since Apr 2024 (pt moved from [place]). Currently living on friends couch. works at a [employer] * Tobacco use: vapes (smoking since 12yo) * ETOH use: denies * Illicit drug use: THC use mmost days What is your current housing situation? 16604-7 I do not have housing (staying with others, in a hotel, in a prison, living outside on the street, on a beach, or in a park) (GV98818-9) Are you worried about losing your housing? 47750-9 Yes (LA33-6) What is the highest level of school that you have finished? 65697-4 More than high school (BH99266-0) What is your current work situation? 09619-1 [employer] work (NZ16958-1) In the past year, have you o r any family members you live with been unable to get any of the following when it was really needed? Check all that apply 77247-3 Medicine or any health care (medical, dental, mental health or vision) (HW45519-8) Has lack of transportation k ept you from medical appointments, meetings, work or from getting things needed for daily living? 65399-2 Yes, it has kept me from medical appointments or from getting my medications (UY63155-9) How often do you see or talk to people that you care about and feel close to? (For example: talking to friends on the phone, visiting friends or family, going to druze or club meetings) 04337-9 More than 5 times a week (FY66651-7) How stressed are you? Stress is when someone feels tense, nervous, anxious, or can\t sleep at night because their mind is troubled 84526-5 Somewhat (OG04571-9) In the past year have you sp ent more than 2 nights in a row in a care home, care home, fci center, or juvenile correctional facility? 01952-9 No (LA32-8) Do you feel physically and emotionally safe where you currently live? 37452-8 Yes (LA33-6) In the past year, have you b een afraid of your partner or ex-partner? 26825-3 No (LA32-8) Are you a refugee? I choose not to answer this question What country are you from? I choose not to answer this question PRAPARE Score: 5 Enabling Services Provided? Yes Social History Social Determinants Social Info Question Answer Notes PRAPARE What is your current housing situation? I do not have housing (staying with others, in a hotel, in a prison, living outside on the street, on a beach, or in a park) Are you worried about losing your housing? Yes What is the highest level of school that you have finished? More than high school What is your current work situation? [employer] In the past year, have you o r any family members you live with been unable to get any of the following when it was really needed? Check all that apply Medicine or any health care (medical, dental, mental health or vision) Has lack of transportation k ept you from medical appointments, meetings, work or from getting things needed for daily living? Yes, it has kept me from medical appointments or from getting my medications How often do you see or talk to people that you care about and feel close to? (For example: talking to friends on the phone, visiting friends or family, going to druze or club meetings) More than 5 times a week How stressed are you? Stress is when someone feels tense, nervous, anxious, or can\t sleep at night because their mind is troubled Somewhat In the past year have you sp ent more than 2 nights in a row in a care home, care home, fci center, or juvenile correctional facility? No Are you a refugee? I choose not to answer this q uestion What country are you from? I choose not to answe r this question Do you feel physically and e motionally safe where you currently live? Yes In the past year, have you b een afraid of your partner or ex-partner? No PRAPARE Score: 5 Enabling Services Provided? Yes Please specify Case Management Appointment Made,Case Management Assessment First Visit,Case Management Follow-up,Financial Counseling/Eligibility Assistance,Referral for Housing Services,Transportation to/from Health Center Miscellaneous Social Info Question Answer Notes Method of learning: Preferred method of learning: Read ing,Discussion Primary Social History Social Info Question Answer Notes Living Arrangement Living Arrangement: Dependent Rochelle guthrie Living with: Friend Is this a supportive environment? Yes Employment Status Employment Status: Unemployed Illicit Substance Usage Illicit Substance Usage: Yes Substance Used: Cannabis Alcohol Use Alcohol Use Frequency: Never Tobacco Use: Social Info Question Answer Notes Tobacco Control (Standard) Tobacco use: Uses tobacco i n other forms Additional Findings: Tobacco user e-cigarette Section Notes: Social: living in [place] since Apr 2024 (pt moved from [place]). Currently living on friends couch. works at a [employer] * Tobacco use: vapes (smoking since 12yo) * ETOH use: denies * Illicit drug use: THC use mmost days Problems Problem Type SNOMED Code ICD Code Dates Problem Status W/U Status Risk Notes Problem Chronic maxillary sinusitis (19694080) Chronic maxillary sinusitis (J32.0) Added On:2024 Active confirmed Problem Hypertension (99068314) Hypertension (I10) Added On:2024 Active confirmed Vital Signs Vital Sign Value Notes Appt Date Heart Rate 71 /min 04/24/2025 Temperature 98.1 degrees Fahrenheit 04/11 Respiratory Rate 16 /min 04/24/2025 Oximetry 96 % 04/24/2025 Blood pressure diastolic 64 mm Hg Height 72 in 04/24/2025 Blood pressure systolic 90 mm Hg 04/11 Weight 154.6 lbs 04/24/2025 BMI 20.97 kg/m2 04/24/2025 Encounters Date Time Type Facility Location Provider Diagnosis 5 12:45 PM Office Visit [address] [address] Herb Jimenez 5 01:20 PM Office Visit, New Pt., Level 4 (27133) [address] [address] Herb Jimenez Establishing care with new doctor, encounter for Z71.89 ; Screening for diabetes mellitus Z13.1 ; Hypertension I10 and Chronic maxillary sinusitis J32.0 5 01:40 PM Office Visit [address] [address] Herb Jimenez Non-suicidal depressed mood R45.89 and Counseling and coordination of care Z71.89 5 09:30 AM Office Visit [facility] [address] [place] [address] Ellie Bowens 5 10:10 AM Office Visit [facility] [address] [place] [address] Ellie Bowens 5 08:10 AM Office Visit [facility] [address] [place] [address] Lelodrake Thompson 5 09:50 AM Office Visit, Est Pt., Level 3 ([address]) [address] [address] Herb Jimenez Follow up Z09 ; Right knee injury, subsequent encounter S89.91XD ; Hypertension I10 ; Screening for diabetes mellitus Z13.1 and Chronic maxillary sinusitis J32.0 5 09:03 AM Telephone Encounter [address] [address] Herb Jimenez 5 11:33 AM Telephone Encounter [address] [address] Herb Jimenez 5 09:21 AM Telephone Encounter [address] [address] Herb Jimenez Hypertension I10 5 12:31 PM Telephone Encounter [address] [address] Ellie Bowens 5 10:49 AM Telephone Encounter [address] [address] Herb Jimenez 5 08:06 AM Telephone Encounter [address] [address] Herb Jimenez Hypertension I10 5 09:32 AM Telephone Encounter [address] [address] Herb Jimenez Assessments Encounter Date Diagnosis (ICD Code) Assessment Notes Treatment Notes Section Notes 11/06/2024 Hypertension (ICD-10 - I10) 04/14/2025 Hypertension (ICD-10 - I10) 10/15/2024 Establishing care with new doctor, encounter for (ICD-10 - Z71.89) - Patient (pt) is a 43-year-old male with past medical history of HTN and chronic sinusitis who presents to establish care. Patient has been living in [place] for the past 4 months. Patient reports of having a history of having left-sided sinus surgery in which part of his sinuses were removed, in . Patient reports that for the last year he has been noticing intermittent left-sided sinus congestion. Patient reports that sinus congestion has been worse over the past few months. Primarily affects left sinus. Patient also reports of occasional sinus drainage to left upper part of gums. States that he feels as if nasal secretion is coming out through upper left lateral portion of gum. Physical exam noted what looks to be like a small fistula in left upper lateral aspect of gum. No active bleeding. Patient's symptoms likely 2/2 chronic sinusitis vs oroantral fistula vs allergic rhinitis. Patient currently denies any difficulties with breathing or p.o. intake. Currently, denies any chest pain, dyspnea, fever/chills, facial tenderness, or headache/dizziness. Vital signs today is reassuring. - we will send a referral for patient to establish care with the ENT physician in [facility] due to his sinus history and concerns for oroantral fistula.- Ordering baseline labs due to pt's medical Hx. Ordering A1C, CBC, CMP, and lipid panel (Pt reports he will come back for blood work on sunday) 04/24/2025 Follow up (ICD-10 - Z09) 04/24/2025 Right knee injury, subsequent encounter (ICD-10 - S89.91XD) - Pt is a 44-year-old with pmhx of HTN who presents for follow-up/right knee swelling. Pt noted about 1 month ago he noted right knee pain after kneeling at work. Patient states initially the affected knee was swollen and painful. Swelling and pain has improved some but swelling has not completely resolved. Patient also reports of noticing crepitus on flexion/extension of the knee. Patient reports prolonged standing and kneeling on the right knee does make pain worse. Patient was initially seen at the ED after the injury and was diagnosed with prepatellar bursitis. Physical exam today noted swelling in the anterior right knee (pt reports that this has improved compared to 1 month ago). No gross bony deformity was noted. No pain noted on manipulation of the knee Of the right. Valrus/valgus stress testing was negative for laxity's on r.knee. No gait abnormalities noted currently. Rest of patient's physical exam and vitals today are reassuring. Patient reports of right sided knee pain only when kneeling on right knee or with prolonged standing.- Due to nature of patient's knee injury and current knee swelling/discomfort, I will send patient referral to be futher evaluated by wardrobe specialist. Informed patient that he can use as needed Tylenol or naproxen for pain - Patient was ordered screening labs on his last visit the patient states that he has not gotten this done yet. Advised for patient to get screening/baseline labs done before his next visit. Pt to follow up in 2 month for wellness visit/go over labs if needed 10/15/2024 Counseling and coordination of care (ICD-10 - Z71.89) 10/15/2024 Non-suicidal depressed mood (ICD-10 - R45.89) 10/15/2024 Screening for diabetes mellitus (ICD-10 - Z13.1) - Rest of plan as above. ordering A1C/CMP. Pt reports he will come back for fastling lab draw this sunday. 10/15/2024 Hypertension (ICD-10 - I10) - refills for patient's lisinopril given today. Patient states that he has been on this medication multiple years. Blood pressure today within normal limits. - Rest of plan as above. 04/24/2025 Hypertension (ICD-10 - I10) 10/15/2024 Chronic maxillary sinusitis (ICD-10 - J32.0) - patient reports of a history of chronic sinusitis on the left. Patient reports of history of having sinus removal surgery in 2022 or 2023. Patient reported that over the past year he has occasionally felt as if sinus drainage is coming out through part of his left upper gum. Sending a referral for patient to establish care with a ENT here in town/ [facility] for oroantral fistula. Rest of plan as above. 04/24/2025 Screening for diabetes mellitus (ICD-10 - Z13.1) 04/24/2025 Chronic maxillary sinusitis (ICD-10 - J32.0) Plan Of Treatment Pending Test Test Name Order Date Hemoglobin A1c* 04/24/2025 CBC With Differential/Platelet* 04/24/20 25 Lipid Panel* 04/24/2025 CMP 14 Comprehensive Metabolic Panel* Future Test Test Name Order Date Hemoglobin A1c* 10/15/2024 CBC With Differential/Platelet* 10/16/19 25 Lipid Panel With LDL/HDL Ratio 5 CMP 14 Comprehensive Metabolic Panel* Next Appt Details Provider Name:Herb Jimenez, 0 06/23/2025 09:10:00 AM, [address] [place], [address], Insurance Providers Payer Name Payer Address Payer Phone Subscriber Number Group Number Insured Name Patient Relationship to Insured Coverage Start Date Coverage End Date [facility] Att Claims Department [address] [place] [address] [phone] [id number] Juvencio Alcala Self - patient is the insured 5 [employer] [address] [address] [place] [address] [id number] Juvencio Alcala Self - patient is the insured 5 Medical (General) History Medical History History ICD [...]
--- OUTSIDE RECORDS SUMMARY | 2025-06-07 08:22 | XMS_ITS | Clinical Summary ---
Author Organization [facility] Address [address] [place] [address] Phone Care Team Providers Care Pump Rebuilder Name Role Phone Herb Jimenez MD Primary Care Provider [phone] Allergies No known active allergies Medications lisinopriL 5 mg tablet every 24 hours Active fluticasone propionate (FLONASE ALLERGY RELIEF OTC) 50 mcg/actuation nasal spray 2 sprays by Each Nostril route every evening 16 g 3 12/10/2024 Active Active Problems No known active problems Social History Tobacco Use Types Packs/Day Years Used Date Smoking Tobacco: Never Tobacco Cessation:Counseling Given: Not Answered Alcohol Use Standard Drinks/Week Comments Not Currently 0 (1 standard drink = 0.6 oz pur e alcohol) Sex and Gender Information Value Date Recorded Sex Assigned at Male 12/30/2024 10:28 AM CDT Legal Sex Male 7:55 PM CDT Gender Identity Not on file Sexual Orientation Not on file Last Filed Vital Signs Vital Sign Reading Time Taken Comments Blood Pressure 113/73 12/30/2024 3:55 PM CDT Pulse 69 12/30/2024 3:55 PM CDT Temperature 36.8 C (98.3 F) 12/30/2024 3:55 PM CDT Respiratory Rate 18 12/06/2024 1:57 PM CDT Oxygen Saturation 98% 12/30/2024 3:55 PM CDT Inhaled Oxygen Concentration - - Weight 67.9 kg (149 lb 9.6 oz) 12/30/2024 3:55 P M CDT Height 188 cm (6' 2) 12/30/2024 3:55 PM CDT Body Mass Index 19.21 12/30/2024 3:55 PM CDT Plan of Treatment Health Maintenance Due Date Last Done Comments Diagnostic Colonoscopy 1979 MMR Vaccines (1 of 1 - Stand elian series) 12/08/1980 Depression Screening 1991 DTaP/Tdap/Td Vaccines (1 - Tdap) 12/08/1998 Hepatitis B Vaccines (1 of 3 - 19+ 3-dose series) 12/08/1998 Lipid Panel 1999 HPV Vaccines (1 - 3-dose SCD M series) 12/08/2006 Screening for Diabetes 12/08/2014 CT Colonography 12/08/2024 Colorectal Cancer Screening 12/08/2024 FIT-DNA (Cologuard) 12/08/2024 Fecal Immunochemical Testing (FIT) 12/08/2024 Fecal Occult Blood (FOBT) 12/08/2024 Flexible Sigmoidoscopy 12/08/2024 Screening Colonoscopy 12/08/2024 COVID-19 Vaccine ( - 2024-2 6 season) 2025 Influenza Vaccine (#1) 2025 HIB Vaccines Aged Out No longer eligi ble based on patient's age to complete this topic Hepatitis A Vaccines Aged Out No long er eligible based on patient's age to complete this topic IPV Vaccines Aged Out No longer eligi ble based on patient's age to complete this topic Meningococcal B Vaccine Aged Out No l onger eligible based on patient's age to complete this topic Meningococcal Vaccine (ACWY) Aged Out No longer eligible based on patient's age to complete this topic Pneumococcal Vaccines Aged Out No colleen thomas eligible based on patient's age to complete this topic Rotavirus Vaccines Aged Out No longer eligible based on patient's age to complete this topic Insurance [employer] [facility] PLAN Care Teams Pump Rebuilder Relationship Specialty Start Date End Date Herb Jimenez MD [facility] [address], [place] [address] PCP - General Adult Medicine 10/23/24
== END 2025-06-07 08:20 | disposition home or self-care (01) ==
PROVIDERS: Emergency Provider Emergency Medicine; Referring Provider Family Medicine
DX: J01.90 Acute sinusitis, unspecified (principal); B96.89 Other specified bacterial agents as the cause of diseases classified elsewhere
CPT/HCPCS: 99283